=== PATIENT | male | born 1960 | race Caucasian/White ===

== ENCOUNTER → 2017-03-25 | Outpatient (CLI) | payer BC | LOC: FLAB 14:08 | PROVIDERS: ATTEND Specialist | DX: N20.0 Calculus of kidney (principal) ==

== ENCOUNTER 2018-01-23 16:58 | Inpatient (IN) | payer BC, OTHER ==
--- NOTE | 2018-01-23 17:11 | CPEKG ---
Heart Rate: 108 RR Interval: 556 QRSD Interval: 74 QT Interval: 348 QTC Interval: 467 QRS [place]: 43 T Wave [place]: 58 EKG Severity - ABNORMAL ECG - EKG Impression: ATRIAL FIBRILLATION, V-RATE 83-130 Electronically Signed By: Wicho Quiroz 23-Jan-2018 21:10:25
[2018-01-23 17:24] LABS: PLATELET COUNT 187 10^3/uL (150-400)
[2018-01-23 17:39] LABS: CREATINE KINASE 113 IU/L (0-224)
[2018-01-23 17:48] LABS: INR 1.01 (0.83-1.16); PROTIME(PATIENT) 13.5 SEC (12.0-15.0)
[2018-01-23] MEDS ORDERED: NS 500 ML IV ONE (17:50)
--- NOTE | 2018-01-23 17:50 | EDPHY ---
H & P Time Seen by Provider: 01/23/18 17:03 HPI/ROS: HPI Anxiety, possible atrial fibrillation. 57-year-old male by private vehicle with his . Patient has a history of intermittent atrial fibrillation. He is on Coreg. He also has a history of hypertension and takes lisinopril. He reports that he was at a restaurant with his and kids getting ready to go to a hockey game in [place] at approximately 3 o'clock when he felt a sensation of fullness in his throat which is how he notices his AFib. He reports that he was going to try to go down to the game but started having more of a feeling of tightness in his throat followed by anxiety and came to the hospital. He reports having a few episodes of intermittent AFib which he describes as brief episodes in the near past. He has not been on any anticoagulation or antiplatelet agents. Denies any associated chest pain or shortness of breath. ROS: Constitutional: No fever, no chills. No weakness. Eyes: No discharge. No changes in vision. ENT: No sore throat. No nasal congestion or rhinorrhea. Respiratory: No cough. No shortness of breath. Cardiac: No chest pain, as above. Gastrointestinal: No abdominal pain, no vomiting, no diarrhea. Genitourinary: No hematuria. No dysuria or increased frequency with urination. Musculoskeletal: No back pain. No neck pain. No myalgias or arthralgias. Skin: No rashes. Neurological: No headache. No focal weakness or altered sensation. Past medical history: Hypertension, AFib, anxiety. He is currently on Coreg and lisinopril. His foil wrapper is Dr. Fish Pradhan. Social history: Nonsmoker. Here with his . Social alcohol. Physical Exam: General Appearance: Alert, mildly anxious but no distress. This patient is responding to questions appropriately and in full sentences. This patient appears well-hydrated and well-nourished. Eyes: Pupils equal and round no pallor or injection. No lid edema, erythema or injection. Respiratory: There are no retractions, lungs are clear to auscultation with good air movement bilaterally. Cardiovascular: Irregular irregular rhythm. No murmur appreciated. Gastrointestinal: Abdomen is soft and nontender, no masses, bowel sounds normal. No focal tenderness at McBurney's point. No Whitfield sign. Neurological: Motor sensory function is grossly intact. Cranial nerves are normal. Gait is normal. Skin: Warm and dry, no rashes. Musculoskeletal: Neck is supple and nontender. Extremities are symmetrical. All joints range without pain or impingement. Psychiatric: No agitation. No depression. Database: EKG: EKG time is 5:10 p.m.; EKG shows a narrow complex atrial fibrillation with a ventricular rate average of 108. The DE, QRS, QT intervals are within normal limits. There are no ST-T wave changes indicative of ischemic or injury pattern. No evidence of right heart strain. Interpreted by me. Imaging: Chest x-ray AP portable; the cardiac mediastinal silhouette is unremarkable. No evidence of infiltrate or pneumothorax. No acute cardiopulmonary disease process noted. Interpreted by me. Procedures: Emergency department course: IV placed. He was placed on a monitor. EKG performed and reviewed by myself. Vital signs reviewed. He is moderately hypertensive. Vital signs otherwise normal. He was started on IV normal saline with 500 cc to be given over the next hour. 6:15 p.m., spoke with on-call foil wrapper, Dr. Mani Apodaca. Case discussed in detail. He recommends the patient be admitted to the hospitalist service and started on a steady state diltiazem drip at 10 milligrams/hour. This was started in the emergency department. Echocardiogram to be performed in the morning. 6:30 p.m., spoke with on-call hospitalist Dr. Nolan. Case discussed in detail with him. He accepts this patient for admission. Patient admitted in stable condition to telemetry observation. Differential Diagnosis: The differential diagnosis on this patient includes but is not limited to atrial fibrillation. Acute coronary syndrome, pulmonary embolism unlikely. This represents a partial list of diagnoses considered. These considerations are based on history, physical exam, past history, reassessment and diagnostic testing. Smoking Status: Never smoked Constitutional: Initial Vital Signs Temperature (C) 36.4 C 01/23/18 17:00 Heart Rate 104 H 01/23/18 17:00 Respiratory Rate 18 01/23/18 17:00 Blood Pressure 160/101 H 01/23/18 17:00 O2 Sat (%) 96 01/23/18 17:00 O2 Delivery Mode Room Air Allergies/Adverse Reactions: hydrocodone bitartrate [From Vicodin] Allergy (Intermediate, Verified 01/23/18 17:02) PANIC ATTACKS/HTN/HEART RACING Home Medications: Medication Instructions Recorded Lisinopril 10 mg PO DAILY 06/13/11 Aspirin [Aspirin 81mg (OTC)] 81 mg PO DAILY 08/05/15 Carvedilol [Coreg] 25 mg PO BIDMEAL 08/05/15 Ascorbic Acid [Vitamin C 500 mg 1,000 mg PO DAILY 01/23/18 (*)] Herbals/Supplements -Info Only 1 ea PO DAILY 01/23/18 [place]-3 Fatty Acids [Fish Oil 1000 1,000 mg PO DAILY 01/23/18 mg (*)] Medical Decision Making - Diagnostics Imaging Results: Imaging Impressions Chest X-Ray 01/23/18 17:03 Impression: Negative. - Data Points Laboratory Results: Laboratory Results 01/23/18 17:15 01/23/18 17:15 01/23/18 01/23/18 01/23/18 18:28 17:15 17:15 WBC RBC Hgb Hct MCV MCH MCHC RDW Plt Count MPV Neut % (Auto) Lymph % (Auto) [place] % (Auto) Eos % (Auto) Baso % (Auto) Nucleat RBC Rel Count Absolute Neuts (auto) Absolute Lymphs (auto) Absolute Monos (auto) Absolute Eos (auto) Absolute Basos (auto) Absolute Nucleated RBC Immature Gran % Immature Gran # PT INR APTT D-Dimer Sodium 144 mEq/L mEq/L (135-145) Potassium 4.3 mEq/L mEq/L (3.5-5.2) Chloride 108 mEq/L mEq/L (97-110) Carbon Dioxide 25 mEq/l mEq/l (22-31) Anion Gap 11 mEq/L mEq/L (8-16) BUN 14 mg/dL mg/dL (7-23) Creatinine 0.9 mg/dL mg/dL (0.7-1.3) Estimated GFR > 60 Glucose 87 mg/dL mg/dL (70-100) Calcium 9.3 mg/dL mg/dL (8.5-10.4) Creatine Kinase 113 IU/L IU/L (0-224) CK-MB (CK-2) Fraction 1.73 ng/mL ng/mL (0.00-3.19) Troponin I < 0.012 ng/mL ng/mL (0.000-0.034) NT-Pro-B Natriuret Pep 134 pg/mL H pg/mL (0-125) TSH 1.210 uIU/mL uIU/mL (0.465-4.680) Urine Color COLORLESS Urine Appearance CLEAR Urine pH 8.0 H (5.0-7.5) Ur Specific [place] 1.004 (1.002-1.030) Urine Protein NEGATIVE (NEGATIVE) Urine Ketones NEGATIVE (NEGATIVE) Urine Blood 1+ H (NEGATIVE) Urine Nitrate NEGATIVE (NEGATIVE) Urine Bilirubin NEGATIVE (NEGATIVE) Urine Urobilinogen NEGATIVE EU EU (0.2-1.0) Ur Leukocyte Esterase NEGATIVE (NEGATIVE) Urine RBC 1-3 /hpf /hpf (0-3) Urine WBC NONE SEEN /hpf /hpf (0-3) Ur Epithelial Cells NONE SEEN /lpf /lpf (NONE-1+) Urine Mucus TRACE /lpf /lpf (NONE-1+) Urine Glucose NEGATIVE (NEGATIVE) 01/23/18 01/23/18 17:15 17:15 WBC 6.42 10^3/uL 10^3/uL (3.80-9.50) RBC 5.58 10^6/uL 10^6/uL (4.40-6.38) Hgb 16.2 g/dL g/dL (13.7-17.5) Hct 48.5 % % (40.0-51.0) MCV 86.9 fL fL (81.5-99.8) MCH 29.0 pg pg (27.9-34.1) MCHC 33.4 g/dL g/dL (32.4-36.7) RDW 11.9 % % (11.5-15.2) Plt Count 187 10^3/uL 10^3/uL (150-400) MPV 9.5 fL fL (8.7-11.7) Neut % (Auto) 61.5 % % (39.3-74.2) Lymph % (Auto) 28.3 % % (15.0-45.0) [place] % (Auto) 7.2 % % (4.5-13.0) Eos % (Auto) 1.9 % % (0.6-7.6) Baso % (Auto) 0.8 % % (0.3-1.7) Nucleat RBC Rel Count 0.0 % % (0.0-0.2) Absolute Neuts (auto) 3.95 10^3/uL 10^3/uL (1.70-6.50) Absolute Lymphs (auto) 1.82 10^3/uL 10^3/uL (1.00-3.00) Absolute Monos (auto) 0.46 10^3/uL 10^3/uL (0.30-0.80) Absolute Eos (auto) 0.12 10^3/uL 10^3/uL (0.03-0.40) Absolute Basos (auto) 0.05 10^3/uL 10^3/uL (0.02-0.10) Absolute Nucleated RBC 0.00 10^3/uL 10^3/uL (0-0.01) Immature Gran % 0.3 % % (0.0-1.1) Immature Gran # 0.02 10^3/uL 10^3/uL (0.00-0.10) PT 13.5 SEC SEC (12.0-15.0) INR 1.01 (0.83-1.16) APTT 31.9 SEC SEC (23.0-38.0) D-Dimer 0.33 ug/mLFEU ug/mLFEU (0.00-0.50) Sodium Potassium Chloride Carbon Dioxide Anion Gap BUN Creatinine Estimated GFR Glucose Calcium Creatine Kinase CK-MB (CK-2) Fraction Troponin I NT-Pro-B Natriuret Pep TSH Urine Color Urine Appearance Urine pH Ur Specific [place] Urine Protein Urine Ketones Urine Blood Urine Nitrate Urine Bilirubin Urine Urobilinogen Ur Leukocyte Esterase Urine RBC Urine WBC Ur Epithelial Cells Urine Mucus Urine Glucose Medications Given: Discontinued Medications Sodium Chloride (Ns) 500 mls @ 0 mls/hr IV EDNOW ONE; Wide Open PRN Reason: Protocol Stop: 01/23/18 17:51 Last Admin: 01/23/18 17:55 Dose: 500 mls Diltiazem HCl 125 mg/ Dextrose 125 mls @ 0 mls/hr IV EDNOW ONE; As Directed PRN Reason: Protocol Stop: 01/23/18 18:34 Last Admin: 01/23/18 18:59 Dose: 125 mls Departure - Departure Disposition: [facility] Acute Clinical Impression: Atrial fibrillation
[2018-01-23] MEDS ORDERED: DILTIAZEM 125 MG in D5W 125 ML IV ONE (18:33)
[2018-01-23] MEDS ORDERED: ACETAMINOPHEN 325 MG TAB PO PRN (18:48)
[2018-01-23] MEDS ORDERED: ONDANSETRON DISINTEGRATING 4 MG TAB PO PRN (18:48)
[2018-01-23] MEDS ORDERED: ONDANSETRON 4 MG/2 ML VIAL IVP PRN (18:48)
[2018-01-23] MEDS ORDERED: NS 1,000 ML IV SCH (19:00)
[2018-01-23] MEDS ORDERED: DILTIAZEM 30 MG TAB PO SCH (19:00)
[2018-01-23] MEDS ORDERED: DILTIAZEM 125 MG in D5W 125 ML IV SCH (19:00)
--- NOTE | 2018-01-23 20:00 | PDGENHP ---
History and Physical - Chief Complaint Acute chest discomfort - History of Present Illness Primary care provider: Dr. Morgan Primary energy trader: Dr. Pradhan HPI: 57-year-old male presenting with acute chest discomfort characterized as sensation of fullness with associated palpitations that began after he experienced a feeling of anxiety, with onset of symptoms around 3:00 p.m. On the day of presentation. The symptoms began while the patient was at rest, eating at [employer] with his family, preparing to go to a [employer]. The symptoms began with anxiety, a vault into fullness in his chest and palpitations, similar in character to atrial fibrillation which he experienced 3 years ago. He did note similar symptoms occurring several days ago, a very limited duration, and resolving without any intervention. He otherwise denies any recent illness, denies any recent medication changes. He reports that he has been eating and drinking normally, and has not been experiencing any GI losses. He reports that he does not exercise on a regular basis, but his physical exertion recently has not been limited by any chest pain or shortness of breath. History Information - Allergies/Home Medication List Allergies/Adverse Reactions: hydrocodone bitartrate [From Vicodin] Allergy (Intermediate, Verified 01/23/18 17:02) PANIC ATTACKS/HTN/HEART RACING Home Medications: Lisinopril 10 mg PO DAILY 06/13/11 [Last Taken 01/23/18] Aspirin [Aspirin 81mg (OTC)] 81 mg PO DAILY 08/05/15 [Last Taken 01/23/18] Carvedilol [Coreg] 25 mg PO BIDMEAL 08/05/15 [Last Taken 01/23/18 09:00] Ascorbic Acid [Vitamin C 500 mg (*)] 1,000 mg PO DAILY 01/23/18 [Last Taken ] Herbals/Supplements -Info Only 1 ea PO DAILY 01/23/18 [Last Taken Unknown] [place]-3 Fatty Acids [Fish Oil 1000 mg (*)] 1,000 mg PO DAILY 01/23/18 [Last Taken 01/23/18] I have personally reviewed and updated: family history, medical history, social history, surgical history - Past Medical History atrial fibrillation (Paroxysmal, diagnosis 3 years ago), hypertension Additional medical history: Anxiety disorder, previously on Paxil, weaned off approximately 1 year ago - Surgical History Additional surgical history: Bilateral hip replacement - Family History Additional family history: Father with myocardial infarction and CABG at age 57 and subsequent AFib - Social History Smoking Status: Never smoked Alcohol Use: Occasionally Drug Use: None Additional social history: Physically strenuous work, not recently limited Review of Systems Review of Systems: ROS: 10pt was reviewed & negative except for what was stated in HPI & below Cardiac: Reports: palpitations, other (Chest fullness) Neurological: Reports: anxiety Physical Exam Physical Exam: Temp Pulse Resp BP Pulse Ox 36.7 C 110 H 16 159/125 H 90 L 01/23/18 18:44 01/23/18 19:52 01/23/18 19:52 01/23/18 19:52 01/23/18 19:52 Constitutional: no apparent distress, appears nourished, not in pain Eyes: PERRL, anicteric sclera, EOMI Ears, Nose, Mouth, Throat: moist mucous membranes, hearing normal, ears appear normal, no oral mucosal ulcers Cardiovascular: irregularly irregular, tachycardia, No systolic murmur, No edema Respiratory: no respiratory distress, no rales or rhonchi, clear to auscultation Gastrointestinal: normoactive bowel sounds, soft, non-tender abdomen, no palpable masses, distension (Mild bloating) Skin: No abrasion, No rash Neurologic: AAOx3, sensation intact bilaterally, No weakness, No facial droop Psychiatric: not encephalopathic, thought process linear, anxious, No agitated Lab Data & Imaging Review 01/23/18 17:15 01/23/18 17:15 WBC 6.42 10^3/uL (3.80-9.50) 01/23/18 17:15 RBC 5.58 10^6/uL (4.40-6.38) 01/23/18 17:15 Hgb 16.2 g/dL (13.7-17.5) 01/23/18 17:15 Hct 48.5 % (40.0-51.0) 01/23/18 17:15 MCV 86.9 fL (81.5-99.8) 01/23/18 17:15 MCH 29.0 pg (27.9-34.1) 01/23/18 17:15 MCHC 33.4 g/dL (32.4-36.7) 01/23/18 17:15 RDW 11.9 % (11.5-15.2) 01/23/18 17:15 Plt Count 187 10^3/uL (150-400) 01/23/18 17:15 MPV 9.5 fL (8.7-11.7) 01/23/18 17:15 Neut % (Auto) 61.5 % (39.3-74.2) 01/23/18 17:15 Lymph % (Auto) 28.3 % (15.0-45.0) 01/23/18 17:15 [place] % (Auto) 7.2 % (4.5-13.0) 01/23/18 17:15 Eos % (Auto) 1.9 % (0.6-7.6) 01/23/18 17:15 Baso % (Auto) 0.8 % (0.3-1.7) 01/23/18 17:15 Nucleat RBC Rel Count 0.0 % (0.0-0.2) 01/23/18 17:15 Absolute Neuts (auto) 3.95 10^3/uL (1.70-6.50) 01/23/18 17:15 Absolute Lymphs (auto) 1.82 10^3/uL (1.00-3.00) 01/23/18 17:15 Absolute Monos (auto) 0.46 10^3/uL (0.30-0.80) 01/23/18 17:15 Absolute Eos (auto) 0.12 10^3/uL (0.03-0.40) 01/23/18 17:15 Absolute Basos (auto) 0.05 10^3/uL (0.02-0.10) 01/23/18 17:15 Absolute Nucleated RBC 0.00 10^3/uL (0-0.01) 01/23/18 17:15 Immature Gran % 0.3 % (0.0-1.1) 01/23/18 17:15 Immature Gran # 0.02 10^3/uL (0.00-0.10) 01/23/18 17:15 PT 13.5 SEC (12.0-15.0) 01/23/18 17:15 INR 1.01 (0.83-1.16) 01/23/18 17:15 APTT 31.9 SEC (23.0-38.0) 01/23/18 17:15 D-Dimer 0.33 ug/mLFEU (0.00-0.50) 01/23/18 17:15 Sodium 144 mEq/L (135-145) 01/23/18 17:15 Potassium 4.3 mEq/L (3.5-5.2) 01/23/18 17:15 Chloride 108 mEq/L (97-110) 01/23/18 17:15 Carbon Dioxide 25 mEq/l (22-31) 01/23/18 17:15 Anion Gap 11 mEq/L (8-16) 01/23/18 17:15 BUN 14 mg/dL (7-23) 01/23/18 17:15 Creatinine 0.9 mg/dL (0.7-1.3) 01/23/18 17:15 Estimated GFR > 60 01/23/18 17:15 Glucose 87 mg/dL (70-100) 01/23/18 17:15 Calcium 9.3 mg/dL (8.5-10.4) 01/23/18 17:15 Creatine Kinase 113 IU/L (0-224) 01/23/18 17:15 CK-MB (CK-2) Fraction 1.73 ng/mL (0.00-3.19) 01/23/18 17:15 Troponin I < 0.012 ng/mL (0.000-0.034) 01/23/18 17:15 NT-Pro-B Natriuret Pep 134 pg/mL (0-125) H 01/23/18 17:15 TSH 1.210 uIU/mL (0.465-4.680) 01/23/18 17:15 Urine Color COLORLESS 01/23/18 18:28 Urine Appearance CLEAR 01/23/18 18:28 Urine pH 8.0 (5.0-7.5) H 01/23/18 18:28 Ur Specific [place] 1.004 (1.002-1.030) 01/23/18 18:28 Urine Protein NEGATIVE (NEGATIVE) 01/23/18 18:28 Urine Ketones NEGATIVE (NEGATIVE) 01/23/18 18:28 Urine Blood 1+ (NEGATIVE) H 01/23/18 18:28 Urine Nitrate NEGATIVE (NEGATIVE) 01/23/18 18:28 Urine Bilirubin NEGATIVE (NEGATIVE) 01/23/18 18:28 Urine Urobilinogen NEGATIVE EU (0.2-1.0) 01/23/18 18:28 Ur Leukocyte Esterase NEGATIVE (NEGATIVE) 01/23/18 18:28 Urine RBC 1-3 /hpf (0-3) 01/23/18 18:28 Urine WBC NONE SEEN /hpf (0-3) 01/23/18 18:28 Ur Epithelial Cells NONE SEEN /lpf (NONE-1+) 01/23/18 18:28 Urine Mucus TRACE /lpf (NONE-1+) 01/23/18 18:28 Urine Glucose NEGATIVE (NEGATIVE) 01/23/18 18:28 Visualized and Interpreted Chest x-ray results: Yes Chest X-Ray results: no infiltrate Visualized and Interpreted EKG results: Yes EKG Interpretation: Positive for: other (Atrial fibrillation with a rate around 108) Assessment & Plan Assessment: 57-year-old male presents with paroxysmal atrial fibrillation and acute rapid ventricular response Plan: 1. Paroxysmal atrial fibrillation. Acute rapid ventricular response, new problem this provider, further workup indicated. Patient had this diagnosis 3 years ago without any clearly identifiable precipitating factors, has not had any cardiac risk stratification and has not recently had any echocardiography done -discussed with Dr. Wicho Quiroz, and he reports he has discussed with Dr. Mani Apodaca, it has been recommended that the patient be placed on a diltiazem drip overnight, receive echocardiogram, and receive consideration of DC cardioversion/BRICE in a.m. If remains in AFib -will administer 30 mg of immediate release diltiazem now and monitor whether patient can come off of the diltiazem drip, and if he does either chemically cardiovert or achieve a sustainable rate less than 100 by tomorrow morning, then it would be appropriate to adjust him to diltiazem continuous release -systemic anticoagulation with Lovenox -hold Coreg, patient was at maximum affected dosage and he is still experiencing AFib, may require calcium channel cate moving 4 -get echocardiogram -check TSH -cardiology has been consulted and will see in a.m., consider for cardioversion , and would recommend considering for urgent, further cardiac risk stratification given his strong family history as well as his intention of traveling out of country in approximately 1 week 2. Hypertension. Continue patient's home lisinopril if blood pressure permits 3. Anxiety. Chronic disorder, patient reports that he felt like his anxiety provoked his AFib 3 years ago and he was atrial fibrillation-free while on Paxil , weaned off 1 year ago -recommend the patient his primary care provider consider we initiating Paxil Diet. Regular, NPO in a.m. Prophylaxis. High risk patient, currently systemically anticoagulated Code. Full Disposition. Anticipated discharge is 01/24, pending further stabilization of condition outlined above.
[2018-01-23] MEDS: ENOXAPARIN 120 MG/0.8 ML SYR SC SCH (22:05)
[2018-01-23] MEDS: DILTIAZEM CD 120 MG CAP PO SCH (22:38)
[2018-01-24] MEDS ORDERED: LORazepam 0.5 MG TAB PO PRN (01:42)
[2018-01-24] MEDS ORDERED: Herbals/Supplements -Info Only PO SCH (09:00)
--- NOTE | 2018-01-24 09:25 | CPEKG ---
Heart Rate: 70 RR Interval: 857 P-R Interval: 184 QRSD Interval: 78 QT Interval: 404 QTC Interval: 436 P [place]: 6 QRS [place]: 33 T Wave [place]: 41 EKG Severity - NORMAL ECG - EKG Impression: SINUS RHYTHM EKG Impression: SINUS RHYTHM HAS REPLACED ATRIAL FIBRILLATION ON PRIOR Electronically Signed By: Mani Apodaca 24-Jan-2018 12:28:17
[2018-01-24] MEDS: OMEGA-3 FATTY ACIDS 1,000 MG CAP PO SCH (09:43)
[2018-01-24] MEDS: LISINOPRIL 10 MG TAB PO SCH (09:43)
[2018-01-24] MEDS: ASCORBIC ACID 500 MG TAB PO SCH (09:44)
[2018-01-24] MEDS: ENOXAPARIN 120 MG/0.8 ML SYR SC SCH ×2 (09:44→09:50)
--- NOTE | 2018-01-24 10:23 | PDCARPN ---
Cardiology Progress Note Chief Complaint: Fullness in chest Assessment/Plan: Assessment: Patient is a 57 y/o male with history of aortic insufficiency with sclerosis as well as HTN (followed in the outpatient setting by my partner, Dr. Marty Pradhan ( seen last in April 2017), without CAD, HLP, or DM, who presented to [facility] ER after phone conversation last night with me (tanning consultant cardiology). While at dinner with family, prior to going to see [employer] game, the patient noted a sensation in his chest. Palpitations and fullness to throat were noted. These symptoms had been noted in the past with "palpitations". No formal diagnosis of atrial fibrillation has been rendered, but upon arrival in the ER, by telemetry and ECG , it was noted that the patient was in atrial fibrillation. Labs were obtained (no elevation in cardiac biomarkers) was noted. Therapy with IV CCB (diltiazem ) was started, and the patient was placed on the PCU floor. Around 10:30 pm last night, the patient spontaneously converted. Lovenox was given in the ER last night. Patient's [id number] score is 1 for age. History of "anxiety" which has been treated with medications in the past. Uncertain if true "anxiety " is noted, or the episodes noted are due to pAF. Weight gain the recent past thought secondary to both hip surgeries as well as hernia surgery with complications in the remote past. At present, the patient is resting comfortably. No cardiovascular complaints of chest pains or pressure. No PND or orthopnea. Heart feels "normal" to the patient. Echocardiogram was performed at bedside today with normal LVEF, normal chamber dimensions, and mild aortic sclerosis with mild insufficiency noted. There had been mention of possible BRICE with cardioversion today (patient converted to normal sinus rhythm) as well as ETT (did not see where this was documented). Given age and CV risks, this is an appropriate study, but not needed prior to discharge. There has been an opening in the schedule to perform this study today, and both the patient and are leaning in the direction of having it done. No alcohol use/abuse (would not even clarify patient as "social" based on limited consumption). No tobacco use. No illicits. Moderate stressors with work. Weight is up about 30 pounds, and patient wanting to do more about this. He does snore, and sleep has been worse with the increase in weight that has been noted. Plan: (1) Would continue medical therapy on Coreg and Lisinopril as at present (2) Would consider statins with noted aortic sclerosis (3) Would arrange for patient to have ETT (non nuclear) stress testing today (4) Consideration for outpatient sleep study - atrial fibrillation diagnosis and "snoring" (5) Continue therapy on low dose ASA (81 mg per day) with the pAF noted - [id number] score is 1 (6) Diet and weight loss are needed (7) Would maintain scheduled follow up with Dr. Marty Pradhan (8) Consideration for 30 day event monitor to determine the frequency of pAF ( beyond that which has been noted by the patient) Subjective: No cardiovascular complaints today Reviewed/Discussed With: family, hospitalist Objective: Vital Signs (8 Hrs) Temp Pulse Resp BP Pulse Ox 01/24/18 08:21 37.0 C 71 18 145/92 H 92 01/24/18 05:18 37.1 C 69 17 150/91 H 94 Intake/Output (24 Hrs) 01/23/18 01/24/18 01/25/18 05:59 05:59 05:59 Intake Total 1130 Output Total 575 Balance 555 Intake: Oral (ml) 750 IV Intake (ml) 380 Output: Urine (ml) 575 Urinal 575 Other: Weight 112 kg Number of Voids Urinal 1 Result Diagrams: 01/23/18 17:15 01/24/18 03:35 EKG: normal sinus rhythm Telemetry: normal sinus rhythm Echocardiogram: normal LVEF. Mild aortic sclerosis (no stenosis). Mild AI. Grossly normal chamber dimensions - Physical Exam Constitutional: WDWN, healthy appearing, no apparent distress, obese Eyes: PERRL, EOMI Ears, Nose, Mouth, Throat: moist mucous membranes Cardiovascular: regular rate and rhythm, no rubs, systolic murmur, jugular vein distention, pulses symmetric bilat Peripheral Pulses: 2+: dorsalis-pedis (R), dorsalis-pedis (L) Respiratory: clear to auscultate bilat, no crackles, no wheezes Gastrointestinal: normoactive bowel sounds Skin: no rashes, no edema Musculoskeletal: no muscular tenderness Neurologic: AAOx3, CN II-XII grossly intact Psychiatric: cooperative, interactive, following commands ICD10 Worksheet Patient Problems: Problems Problem Status Onset Atrial fibrillation Acute
[2018-01-24] MEDS ORDERED: diphenhydrAMINE 25 MG CAP PO ONE (12:04)
[2018-01-24] MEDS ORDERED: FAMOTIDINE 20 MG TAB PO ONE (12:04)
[2018-01-24] MEDS ORDERED: DIAZEPAM 5 MG TAB PO ONE (12:04)
[2018-01-24] MEDS ORDERED: ASPIRIN EC 325 MG TAB PO ONE (12:04)
[2018-01-24] MEDS ORDERED: TEMAZEPAM 15 MG CAP PO PRN (12:04)
[2018-01-24] MEDS ORDERED: NITROGLYCERIN 0.4 MG BTL SL PRN (12:04)
--- NOTE | 2018-01-24 12:14 | ASMTCMCOM ---
CM Note CM Note Notes: 01/24/2018 Case Management Note Reviewed chart and discussed with RN. 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 There are no anticipated d/c needs from case management d/t pt age, marital status and activity levels prior to admission. There are no PT or OT evals ordered at this time. Case Management d/c poc: anticipating independent with follow up as directed. Case Management available if needs change. Date Signed: 01/24/2018 12:14 PM Electronically Signed By:Afua Sandoval RN
[2018-01-24] MEDS ORDERED: NS 1,000 ML IV SCH (12:15)
--- NOTE | 2018-01-24 12:22 | PDPROPOC ---
Sedation Plan of Care Sedation Plan of Care: vital signs stable, mental status noted, patient educated of risks, benefits, alternatives, patient can tolerate sedation ASA Classification: ASA 2 Planned drugs: fentanyl, midazolam Mallampati Score: Class 2 Mallampati Reference Image: Patient passed 3-3-2 rule?: Yes
[2018-01-24 13:16] LABS: PLATELET COUNT 188 10^3/uL (150-400)
[2018-01-24 13:25] LABS: INR 1.05 (0.83-1.16); PROTIME(PATIENT) 13.9 SEC (12.0-15.0)
[2018-01-24] MEDS ORDERED: MIDAZOLAM 2 MG/2 ML VIAL ONE (13:31)
[2018-01-24] MEDS ORDERED: LIDOCAINE 1% 300 MG/30 ML SDV ONE (13:31)
[2018-01-24] MEDS ORDERED: fentaNYL 100 MCG/2 ML INJ ONE (13:31)
--- NOTE | 2018-01-24 13:49 | CPR ---
[f rep st] NONINVASIVE CARDIAC PROCEDURE REPORT DATE OF PROCEDURE: 01/24/2018 PROCEDURE: Treadmill stress test. REASON FOR TEST: Chest pain. Resting blood pressure 160/100, resting heart rate 79. Resting EKG shows a regular sinus rhythm with a rate of 79. He feels well. STRESS PORTION: He was exercised according to the Cresencio protocol for a total of 7 minutes and 47 sec onds. Treadmill stopped due to hypertension of 220/100, ST depression noted in the inferior anterior lateral leads. He remained asymptomatic throughout the test. Peak heart rate 138, which was 85% max imal heart rate. Peak blood pressure 188/100. RECOVERY: EKG showed regular sinus rhythm. His ST depression was resolving by the end of the recove ry. This EKG will be reviewed with Dr. Mani Apodaca for further recommendations. /[id number]/MODL
--- NOTE | 2018-01-24 14:41 | ECHO ---
[email or web address] [address] [address] Main: [phone] Fax: Transthoracic Echocardiogram Name: DAVID SOTO MR#: [id number] Study Date: 01/24/2018 Study Time: 08:51 AM Date of : 1960 Age: 57 year(s) Height: 185.4 cm (73 in.) Weight: 113.4 kg (250 lb.) BSA: 2.37 m2 Gender: Male Examination: Echo Indication: Atrial Fibrillation Image Quality: Adequate Contrast: Requested by: Mani Nolan BP: 145 mmHg/92 mmHg Heart Rate: Rhythm: Normal sinus rhythm Indication: Atrial Fibrillation Procedure Staff Control Electrician: Shikha Ford [facility] Reading Physician: Mookie Norman MD Requesting Provider: Measurements: Chambers Valvular Assessment AV/MV Valvular Assessment TV/PV Normal Normal Normal Name Value Range Name Value Range Name Value Range Ao Liana (MM): 3.3 cm (2.2 cm-3.7 LVOT Vmax: 1.08 m/s (0.7 m/s-1.1 PV Vmax: 1.19 m/s (0.6 m/s-0.9 cm) m/s) m/s) IVSd (2D): 1.2 cm (0.6 cm-1.1 AR (PHT): 567 ms ( - ) PV PGmax: 6 mmHg ( - ) cm) MV E Vmax: 0.67 m/s ( - ) LVDd (2D): 4.8 cm (4.2 cm-5.9 MV A Vmax: 0.98 m/s ( - ) cm) MV E/A: 0.68 ( - ) LVDs (2D): 3.2 cm (2.1 cm-4 cm) LVPWd (2D): 0.9 cm (0.6 cm-1 cm) LVEF (BP): 66 % (>=55 %) RVDd(2D): 2.6 cm (1.9 cm-3.8 cmmm) Continued Measurements: Chambers Valvular Assessment AV/MV Name Value Name Value LADs: 3.8 cm MV DecTime: 151 m/s LADs Lon.6 cm MV E' Septal: 0.06 m/s LA Area: 20.0 cm2 MV E/E' Septal: 10.50 LA Volume: 55 ml MV E/E' Lateral: 6.80 LA Volume Index: 23.2 ml/m2 AR Vmax: 5.60 cm/s RA Area: 13.7 cm2 Additional Vessels Patient: DAVID SOTO Study Date: 01/24/2018 Page 1 of 2 08:51 AM Name Value Ao Ascendin.0 cm Findings: Left Ventricle: Normal size left ventricle. Normal global systolic LV function. EF is 66 %. No regional wall motion abnormality. Normal diastolic LV function. Posterior wall is normal thickness and the septal wall is mildly thickened. Right Ventricle: Normal size right ventricle. Normal RV function. Left Atrium: The left atrium is normal in size. Right Atrium: The right atrium is normal in size. Mitral Valve: The mitral valve is normal in appearance and function. There is mild thickening of the mitral valve leaflets. Trivial to mild mitral regurgitation. No mitral stenosis is present. Aortic Valve: The aortic valve is tri-leaflet and functions normally. Mild aortic cusp calcification is noted. Mild aortic valve regurgitation is present. No aortic valve stenosis is present. Tricuspid Valve: The tricuspid valve is normal in appearance and function. There is no tricuspid valve regurgitation. Pulmonary artery pressure is not obtained due to inadequate TR jet. Pulmonic Valve: The pulmonic valve is normal in appearance and function. There is no pulmonic regurgitation seen. Aorta: The aorta is normal. Normal size aortic root measuring 3.3 cm. Normal size ascending aorta measuring 3.0 cm. IVC: The IVC is normal sized. Pericardium: No pericardial effusion. (No Signature Object) Patient: DAVID SOTO Study Date: 01/24/2018 Page 2 of 2 08:51 AM [id number]
--- NOTE | 2018-01-24 15:11 | HOSPPROG ---
Hospitalist Progress Note Assessment/Plan: 7-year-old male presents with paroxysmal atrial fibrillation and acute rapid ventricular response # Paroxysmal atrial fibrillation -positive stress test -plan for cath 01/25 #. Hypertension -will increase home dose of lisinopril to 20mg daily #.Anxiety. Chronic disorder, patient reports that he felt like his anxiety provoked his AFib 3 years ago and he was atrial fibrillation-free while on Paxil , weaned off 1 year ago -recommend the patient his primary care provider consider we initiating Paxil -pt requests Ambien for sleep Diet. Regular, NPO after midnight for cath Code. Full Disposition. change to inpatient status Subjective: no chest pain or shortness of breath Objective: Vital Signs Temp Pulse Resp BP Pulse Ox 36.7 C 71 16 148/95 H 92 01/24/18 13:24 01/24/18 13:24 01/24/18 13:24 01/24/18 13:24 01/24/18 13:24 Laboratory Results 01/24/18 13:05 01/24/18 13:05 01/23/18 01/24/18 01/25/18 05:59 05:59 05:59 Intake Total 1130 Output Total 575 Balance 555 PT 13.9 SEC (12.0-15.0) 01/24/18 13:05 INR 1.05 (0.83-1.16) 01/24/18 13:05 - Physical Exam Constitutional: no apparent distress, appears nourished, not in pain Cardiovascular: regular rate and rhythym, no murmur, rub, or gallop Respiratory: no respiratory distress, no rales or rhonchi, clear to auscultation Gastrointestinal: normoactive bowel sounds, soft, non-tender abdomen, no palpable masses ICD10 Worksheet Patient Problems: Problems Problem Status Onset Atrial fibrillation Acute
[2018-01-24] MEDS: CARVEDILOL 25 MG TAB PO SCH (18:31)
[2018-01-24] MEDS: DILTIAZEM CD 120 MG CAP PO SCH (22:12)
[2018-01-25] MEDS ORDERED: FAMOTIDINE 20 MG TAB PO ONE (07:26)
[2018-01-25] MEDS ORDERED: DIAZEPAM 5 MG TAB PO ONE (07:26)
[2018-01-25] MEDS ORDERED: diphenhydrAMINE 25 MG CAP PO ONE (07:26)
[2018-01-25] MEDS ORDERED: ASPIRIN EC 325 MG TAB PO ONE (07:26)
[2018-01-25] MEDS: CARVEDILOL 25 MG TAB PO SCH (07:58)
[2018-01-25] MEDS ORDERED: CARVEDILOL 25 MG TAB PO SCH (08:00)
--- NOTE | 2018-01-25 08:24 | PDMN ---
Medical Necessity Medical necessity: M505 afib A-1 days: afib with RVR , + stress test ( ST depression, HTN 188/100 - peak 220/100- stess test stopped due to elevated BP) , , further eval ( cath), monitoring needed, HTN, anxiety
--- NOTE | 2018-01-25 08:37 | CPEKG ---
Heart Rate: 64 RR Interval: 938 P-R Interval: 172 QRSD Interval: 90 QT Interval: 412 QTC Interval: 425 P [place]: -9 QRS [place]: -1 T Wave [place]: 35 EKG Severity - NORMAL ECG - EKG Impression: SINUS RHYTHM Electronically Signed By: Eddie Yarbrough 25-Jan-2018 12:24:50
[2018-01-25] MEDS ORDERED: LIDOCAINE 1% 300 MG/30 ML SDV ONE (08:40)
[2018-01-25] MEDS ORDERED: fentaNYL 100 MCG/2 ML INJ ONE ×2 (08:41→09:13)
[2018-01-25] MEDS ORDERED: IOPAMIDOL (ISOVUE-370) 150 ML BTL IV ONE (08:41)
[2018-01-25] MEDS ORDERED: MIDAZOLAM 2 MG/2 ML VIAL ONE (08:41)
[2018-01-25] MEDS ORDERED: ATROPINE SULFATE 1 MG/10 ML SYR IVP PRN (09:39)
--- NOTE | 2018-01-25 09:45 | PDDXCAT ---
Diagnostic Cath Note - . Date: 01/25/18 Unscrambler: Constanza Indication: Serial noninvasive testing w progressively worsening abnormalities High-risk criteria on non-invasive testing: stress-induced moderate-size multiple perfusion defects - Procedure Access: right groin Procedure: left heart catheterization, coronary angiography, left ventriculogram - Materials Left Heart Cath size: 6F Left Heart Cath materials: standard multipack (JL4, JR4, pigtail) - Findings-Left Heart Catheterization LM: Medium diameter vessel with trifurcation into the LAD, LCX, and ramus vessels. No luminal irregularities were noted. LAD: Medium diameter vessel with a smallish first diagonal and an equal size diameter second diagonal (to the take off from the LAD). No luminal irregularities were noted. Distal LAD is a wrap around to apex. LCX: Large, dominant vessel with supply to the PDA. Large, principal first obtuse marginal. Second obtuse marginal with supply to the PDA (this being a large diameter vessel as well). No luminal irregularites were noted. RCA: Small to medium diameter vessel. In the prox/mid vessel, there was a 20-30 % narrowing noted. JR II flow was noted through the vessel (no ostial luminal irregularities were noted). Outside of the aformentioned narrowing, there is no other lesion appreciated. Ramus: Small vessel without luminal irregularities noted. EDP: 18 mm Hg LVEF: 60 Wall motion: normal wall motion Complications: none Estimated blood loss: <50ml Closure method: Angioseal Assessment: 57 y/o male with an abnormal stress test (ETT with ST depression), "new" atrial fibrillation, HTN, and family history of CAD, who had no critical CAD appreciated. Normal LVEF. Normal wall motion. Small, non critical (up to 30%) lesion to the prox/mid RCA. Plan: Aggressive medical management. Continue antihypertensive therapy, but would discontinue Coreg (25 mg twice per day) in favor of 50 mg twice per day of metoprolol tartrate. ASA therapy should continue (81 mg per day). Intervention: none Patient Problems: Problems Problem Status Onset Atrial fibrillation Acute
[2018-01-25] MEDS: LISINOPRIL 10 MG TAB PO SCH (13:28)
[2018-01-25] MEDS: ASCORBIC ACID 500 MG TAB PO SCH (13:28)
[2018-01-25] MEDS: OMEGA-3 FATTY ACIDS 1,000 MG CAP PO SCH (13:28)
[2018-01-25 15:20] VITALS: BP 133/85
--- NOTE | 2018-01-25 19:54 | PDDCSUM ---
Discharge Summary Discharge Summary: DISCHARGE DIAGNOSES: -acute chest pain, resolved -acute paroxysmal atrial fibrillation with rapid ventricular response, 1st episode for this patient, spontaneously cardioverted -noncritical coronary artery disease seen on angiography done here -hyperlipidemia CONSULTANTS: Dr. Mani Apodaca PROCEDURES: Echocardiogram Coronary angiography HOSPITAL COURSE SUMMARY: This patient came into the hospital with some chest discomfort. He rule out for myocardial infarction but he did have rapid atrial fibrillation at the time of presentation. He had no congestive heart failure at the time of admission. He was admitted to the hospital and monitored on nurse monitoring. He did spontaneously convert to sinus rhythm. He was started on anticoagulant. However as he has a chads Vasc score of only 1 he was changed back to daily aspirin. His chest pain resolved spontaneously and he remained clinically stable overall all. His echocardiogram showed normal ejection fraction without wall motion abnormality and no other specific abnormalities. He went to coronary angiography where he was found to have noncritical coronary disease with the most significant stenosis at 30% or less. The patient had no complications of any of his procedures. He is felt stable for discharge to home. He did have extensive educational discussion regarding his coronary disease with the requirement for ongoing risk factor modification and monitoring. We also talked about his atrial fibrillation and a small risk of strokes that he should stay on daily aspirin. As he did not have adequate rate control for his AFib on the beta-cate he was taking it is elected at this time to add some diltiazem and increase his metoprolol dose. There is no indication for any antiarrhythmic at at present. PENDING TEST RESULTS: None MEDICATION CHANGES: Addition of Crestor Discontinuation of long-acting metoprolol, replacement with short-acting metoprolol 50 mg twice daily Patient is to continue daily aspirin Addition of diltiazem 120 mg daily long-acting FOLLOW-UP PLAN: With Dr. Whitten to he 0 in 2 4 weeks Greater than 35 minutes bedside and care coordination time today
[2018-01-26] MEDS ORDERED: ROSUVASTATIN CALCIUM 10 MG TAB PO SCH (09:00)
== END 2018-01-25 17:36 | disposition home or self-care (01) | DRG 287 ==
LOC: OBSVTOIN 18:34 → F2W 20:00
PROVIDERS: ADMIT Internal Medicine; ATTEND Internal Medicine
PROC: B2111ZZ Fluoroscopy of Multiple Coronary Arteries using Low Osmolar Contrast (ICD-10-PCS; principal; 2018-01-25)
PROC: 4A023N7 Measurement of Cardiac Sampling and Pressure, Left Heart, Percutaneous Approach (ICD-10-PCS; principal; 2018-01-25)
PROC: B2151ZZ Fluoroscopy of Left Heart using Low Osmolar Contrast (ICD-10-PCS; principal; 2018-01-25)
DX: I48.0 Paroxysmal atrial fibrillation (principal); I25.10 Atherosclerotic heart disease of native coronary artery without angina pectoris; E78.5 Hyperlipidemia, unspecified; I10 Essential (primary) hypertension; F41.9 Anxiety disorder, unspecified
CPT/HCPCS: C1760; G0378; J1644; J1650; J2250; J3010; Q9967